=== PATIENT | male | born 1955 | race Caucasian/White ===

== ENCOUNTER 2020-01-28 14:59 | Outpatient (CLI) | payer BC | END 2020-01-28 15:00 | disposition home or self-care (01) | LOC: CTENTCT 14:59 | PROVIDERS: ATTEND Otolaryngology Plastic Surgery within the Head & Neck | DX: J32.9 Chronic sinusitis, unspecified (principal) | CPT/HCPCS: 70486 ==

== ENCOUNTER 2021-11-20 10:49 | Outpatient (CLI) | payer BC ==
[2021-11-20 13:04] LABS: Hemoglobin 11.9 g/dL (13.5-17.5)
[2021-11-20 13:14] LABS: Anion Gap 13 mmol/L (10-20); BUN (Urea Nitrogen) 18 mg/dL (8.4-25.7); Calc. Creatinine Clearance 0 mL/min (70-130); Calcium 9.2 mg/dL (7.8-10.44); Carbon Dioxide 25 mmol/L (23-31); Chloride 100 mmol/L (98-107); Glucose 89 mg/dL (80-115); Potassium 4.2 mmol/L (3.5-5.1); Sodium 134 mmol/L (136-145)
== END 2021-11-20 10:50 | disposition home or self-care (01) ==
LOC: LABBT 10:49
PROVIDERS: ATTEND Otolaryngology Plastic Surgery within the Head & Neck
DX: Z01.818 Encounter for other preprocedural examination (principal); J32.0 Chronic maxillary sinusitis; J32.2 Chronic ethmoidal sinusitis; J34.2 Deviated nasal septum; R09.81 Nasal congestion; Z20.822 Contact with and (suspected) exposure to COVID-19
CPT/HCPCS: 80048; 85014; 85018; 93005; 93010; U0003; U0005

== ENCOUNTER 2021-11-27 13:41 | Outpatient (CLI) | payer BC | END 2021-11-27 13:42 | disposition home or self-care (01) | LOC: LABBT 13:41 | PROVIDERS: ATTEND Otolaryngology Plastic Surgery within the Head & Neck | DX: Z01.812 Encounter for preprocedural laboratory examination (principal); J34.2 Deviated nasal septum; J32.8 Other chronic sinusitis; J34.3 Hypertrophy of nasal turbinates; R09.81 Nasal congestion; Z20.822 Contact with and (suspected) exposure to COVID-19 | CPT/HCPCS: 87811 ==

== ENCOUNTER 2021-12-02 10:29 | Day surgery (SDC) | payer BC ==
[2021-11-23 09:40] VITALS: BMI 28.7
[2021-12-02] MEDS ORDERED: Midazolam HCl 2 mg/2 ml Vial ONE (11:41)
[2021-12-02] MEDS ORDERED: Oxymetazoline HCl 0.05% (30 ML BOT) ONE ×2 (11:41→12:02)
[2021-12-02] MEDS ORDERED: Bacitracin Zinc Ointment 30 gm TUBE ONE (12:02)
[2021-12-02] MEDS ORDERED: Lidocaine 1% w/Epinephrine 1:100K 20 ML VIAL ONE (12:02)
[2021-12-02] MEDS ORDERED: SUGAMMADEX SODIUM 200 MG/2 ML VIAL ONE (12:03)
[2021-12-02] MEDS ORDERED: fentaNYL Citrate/PF 100 MCG/2 ML SYRINGE ONE (12:03)
[2021-12-02] MEDS ORDERED: Ondansetron PF 4 MG/2 ML Vial ONE (12:16)
[2021-12-02] MEDS ORDERED: Lidocaine 1% PF 5 ML VIAL ONE (12:16)
[2021-12-02] MEDS ORDERED: PROPOFOL 200 MG/20 ML VIAL ONE (12:16)
[2021-12-02] MEDS ORDERED: Dexamethasone 20 MG/5 ML VIAL ONE (12:16)
[2021-12-02] MEDS ORDERED: Rocuronium Bromide 10 MG/ML (10ML VIAL) ONE (12:16)
[2021-12-02] MEDS ORDERED: Fentanyl 100 MCG/2 ML VIAL ONE (13:20)
== END 2021-12-02 14:45 | disposition home or self-care (01) ==
LOC: SDC 10:29
PROVIDERS: ATTEND Otolaryngology Plastic Surgery within the Head & Neck
PROC: 099R8ZZ Drainage of Left Maxillary Sinus, Via Natural or Artificial Opening Endoscopic (ICD-10-PCS; principal; 2021-12-02)
PROC: 099Q8ZZ Drainage of Right Maxillary Sinus, Via Natural or Artificial Opening Endoscopic (ICD-10-PCS; principal; 2021-12-02)
PROC: 09SM0ZZ Reposition Nasal Septum, Open Approach (ICD-10-PCS; principal; 2021-12-02)
PROC: 09BL8ZZ Excision of Nasal Turbinate, Via Natural or Artificial Opening Endoscopic (ICD-10-PCS; principal; 2021-12-02)
PROC: 09BU8ZZ Excision of Right Ethmoid Sinus, Via Natural or Artificial Opening Endoscopic (ICD-10-PCS; 2021-12-02)
PROC: 09BV8ZZ Excision of Left Ethmoid Sinus, Via Natural or Artificial Opening Endoscopic (ICD-10-PCS; 2021-12-02)
DX: J32.8 Other chronic sinusitis (principal); J34.2 Deviated nasal septum; J34.3 Hypertrophy of nasal turbinates; J34.89 Other specified disorders of nose and nasal sinuses; D64.9 Anemia, unspecified; G89.29 Other chronic pain; Z79.899 Other long term (current) drug therapy
CPT/HCPCS: J1100; J2250; J2405; J2704; J3010

== ENCOUNTER 2022-07-29 10:43 | Outpatient (CLI) | payer BC ==
[2022-07-29 11:51] LABS: #Eosinphils 0.1 10x3/uL (0.0-0.5); #Monocytes 0.5 10x3/uL (0.0-1.1); #Neutrophils 4.2 10x3/uL (1.5-8.4); %Basophils 0.5 % (0.0-2.0); %Eosinophils 0.9 % (0.0-6.0); %Monocytes 7.9 % (0.0-10.0); %Neutrophils 71.4 % (40.0-75.0); Hemoglobin 11.7 g/dL (13.5-17.5); Mean Corpuscular HGB CONC 33.4 g/dL (32.0-36.0); Mean Corpuscular Hemoglobin 29.5 pg (27.0-33.0); Mean Corpuscular Volume 88.4 fl (81.2-95.1); Mean Platelet Volume 11.1 fl (7.4-10.4); Platelet Count 246 10x3/uL (150-450); Red Blood Cell (RBC) Count 3.96 10x6/uL (4.32-5.72); White Blood Cell (WBC) Count 5.8 10x3/uL (3.5-10.5)
[2022-07-29 12:31] LABS: Anion Gap 14 mmol/L (10-20); BUN (Urea Nitrogen) 11 mg/dL (8.4-25.7); Calc. Creatinine Clearance 0 mL/min (70-130); Calcium 9.4 mg/dL (7.8-10.44); Carbon Dioxide 23 mmol/L (23-31); Chloride 102 mmol/L (98-107); Estimated GFR 93; Glucose 122 mg/dL (80-115); Potassium 3.7 mmol/L (3.5-5.1); Sodium 135 mmol/L (136-145)
== END 2022-07-29 10:44 | disposition home or self-care (01) ==
LOC: LABBT 10:43
PROVIDERS: ATTEND Specialist
DX: Z01.818 Encounter for other preprocedural examination (principal); K42.9 Umbilical hernia without obstruction or gangrene
CPT/HCPCS: 71046; 80048; 85025; 93005; 93010

== ENCOUNTER 2022-08-10 05:52 | Day surgery (SDC) | payer BC ==
[2022-08-09 09:53] VITALS: BMI 28.7
[2022-08-10] MEDS ORDERED: Acetaminophen 500 MG TAB ONE (06:23)
[2022-08-10] MEDS ORDERED: Sodium Chloride 0.9% 100 ML ONE (06:24)
[2022-08-10] MEDS ORDERED: Ketorolac Tromethamine 30 MG/ML VIAL ONE (06:24)
[2022-08-10] MEDS ORDERED: CEFAZOLIN 2 GM VIAL ONE (06:24)
[2022-08-10] MEDS ORDERED: Bupivacaine/Epinephrine 0.25% 30 ML VIAL ONE (06:46)
[2022-08-10] MEDS ORDERED: fentaNYL PF 100 MCG/2 ML SYRINGE ONE (07:06)
[2022-08-10] MEDS ORDERED: Rocuronium Bromide 10 MG/ML (10ML VIAL) ONE (07:34)
[2022-08-10] MEDS ORDERED: Glycopyrrolate 0.2 MG/ML 5 ML SYRINGE ONE (07:34)
[2022-08-10] MEDS ORDERED: Lidocaine 1% PF 5 ML VIAL ONE (07:34)
[2022-08-10] MEDS ORDERED: NEOSTIGMINE 3 MG/3 ML SYR 3 MG/3 ML SYRINGE ONE (07:34)
[2022-08-10] MEDS ORDERED: Ondansetron PF 4 MG/2 ML Vial ONE (07:34)
[2022-08-10] MEDS ORDERED: PROPOFOL 200 MG/20 ML VIAL ONE (07:34)
[2022-08-10] MEDS ORDERED: Dexamethasone 20 MG/5 ML VIAL ONE (07:34)
[2022-08-10] MEDS ORDERED: FENTANYL 50 MCG/ML 1 ML VIAL ONE ×2 (09:13→09:33)
[2022-08-10] MEDS ORDERED: Morphine 2 MG/ML VIAL ONE (10:24)
[2022-08-10] MEDS ORDERED: HYDROcodone/Acetaminophen 5/325 mg Tablet ONE (10:24)
== END 2022-08-10 11:05 | disposition home or self-care (01) ==
LOC: SDC 05:52
PROVIDERS: ATTEND Specialist
PROC: 0WUF0JZ Supplement Abdominal Wall with Synthetic Substitute, Open Approach (ICD-10-PCS; principal; 2022-08-10)
DX: K42.0 Umbilical hernia with obstruction, without gangrene (principal); G89.29 Other chronic pain; Z79.1 Long term (current) use of non-steroidal anti-inflammatories (NSAID)
CPT/HCPCS: C1889; J1100; J1885; J2272; J2405; J2704; J3010; J3490